=== PATIENT | male | born 1990 | race Two or more races ===

== ENCOUNTER 2016-09-21 15:14 | Emergency (ER) | payer BC ==
[~2016-09-21] VITALS: Ht 177.8 cm; Wt 79.4 kg
[2016-09-21 17:19] VITALS: BP 120/71
--- NOTE | 2016-09-21 17:19 | NUR ---
MSE COMPLETED. PT D/C'D HOME ACI GIVEN. PT AMBULATED W/O DIFF/TOOK ALL BELONGINGS.
== END 2016-09-21 17:20 | disposition home or self-care (01) ==
LOC: ER 15:15
DX: S06.0X0A Concussion without loss of consciousness, initial encounter (principal); J45.909 Unspecified asthma, uncomplicated; Z88.0 Allergy status to penicillin; W50.0XXA Accidental hit or strike by another person, initial encounter; Y93.67 Activity, basketball; Y92.9 Unspecified place or not applicable; Y99.9 Unspecified external cause status
CPT/HCPCS: 70450; 99284; A4663

== ENCOUNTER 2017-03-01 22:43 | Emergency (ER) | payer BC ==
[~2017-03-01] VITALS: Ht 175.3 cm; Wt 81.6 kg
--- NOTE | 2017-03-02 00:42 | NUR ---
ERMD at bedside for MSE.
--- NOTE | 2017-03-02 02:10 | NUR ---
Radiology at bedside for US.
--- NOTE | 2017-03-02 02:24 | NUR ---
Radiology completed US, preliminary results to ERMD.
--- NOTE | 2017-03-02 02:34 | NUR ---
Patient discharged to home in stable conditon. Written and verbal after care instructions given. Patient verbalizes understanding of instructions.
== END 2017-03-02 02:35 | disposition home or self-care (01) ==
LOC: ER 22:44
DX: G57.92 Unspecified mononeuropathy of left lower limb (principal); L20.9 Atopic dermatitis, unspecified; J45.909 Unspecified asthma, uncomplicated; Z88.0 Allergy status to penicillin
CPT/HCPCS: A4663

== ENCOUNTER 2022-10-25 23:44 | Emergency (ER) | payer BC ==
[~2022-10-25] VITALS: Ht 175.3 cm; Wt 83.9 kg
[2022-10-26] MEDS ORDERED: CLINDAMYCIN HCL 300 MG CAPSULE ONE (00:26)
[2022-10-26] MEDS ORDERED: ONDA4TAB5 PO ×2 (00:27→01:18)
[2022-10-26] MEDS ORDERED: HYDR-3980 PO ×2 (00:27→01:18)
[2022-10-26] MEDS ORDERED: CLIN300C12 PO (00:27)
[2022-10-26] MEDS ORDERED: CLINDAMYCIN HCL 150 MG CAPSULE PO ONE (00:30)
[2022-10-26] MEDS ORDERED: HYDR-4209 PO (01:31)
[2022-10-26 02:30] VITALS: BP 135/80; TEMP 98; O2SAT 98
== END 2022-10-26 00:45 | disposition home or self-care (01) ==
LOC: ER 23:48
DX: K08.89 Other specified disorders of teeth and supporting structures (principal); J45.909 Unspecified asthma, uncomplicated; Z88.0 Allergy status to penicillin
CPT/HCPCS: A4663